=== PATIENT | female | born 1980 | race Caucasian/White ===

== ENCOUNTER 2019-02-20 14:52 | Emergency (ER) | payer MEDICAID ==
[~2019-02-20] VITALS: Ht 157.5 cm; Wt 64.4 kg
[2019-02-20 14:55] VITALS: BP 134/81; PULSE 87; RESP 18; Ht 157.5 cm; Wt 64.4 kg
[2019-02-20] MEDS ORDERED: ONDANSETRON 4 MG INJ IV STA (15:19)
[2019-02-20] MEDS ORDERED: DIPHENHYDRAMINE 50 MG INJ IV STA (15:19)
[2019-02-20] MEDS ORDERED: SOD CHLORIDE 0.9% 1,000 ML IV STA (15:19)
[2019-02-20] MEDS ORDERED: KETOROLAC 30 MG INJ IV STA (15:19)
[2019-02-20] MEDS ORDERED: ACET325T33 PO (16:19)
[2019-02-20] MEDS ORDERED: NAPR-985 PO (16:19)
--- NOTE | 2019-02-20 16:43 | ERD ---
ER Documentation Chief Complaint Chief Complaint head pain x 2 days denies dizziness, nausea or vision changes HPI 38-year-old female presenting with headache and nausea. Patient has some mild chest pain and occasional shortness of breath. She denies any abdominal pain. Feels mildly nauseous. Has taken Tylenol with no alleviation. States that her headache is located in the occipital lobe denies any visual changes. Denies medical problems. NKDA. Surgical history . Social history denies ROS All systems reviewed and are negative except as per history of present illness. Medications Home Meds Active Scripts Acetaminophen* (Tylenol*) 325 Mg Tablet, 2 TAB PO Q6 PRN for PAIN AND OR ELEVATED TEMP, #20 TAB Prov:LANI RILEY PA-C 02/20/19 Naproxen* (Naprosyn*) 500 Mg Tablet, 500 MG PO BID PRN for PAIN AND/OR INFLAMMATION, #30 TAB Prov:LANI RILEY PA-C 02/20/19 Allergies Allergies: Coded Allergies: No Known Allergy (Unverified , 02/20/19) PMhx/Soc Medical and Surgical Hx: pt denies Medical Hx History of Surgery: Yes () Hx Alcohol Use: No Hx Substance Use: No Hx Tobacco Use: No Smoking Status: Never smoker FmHx Family History: No diabetes, No coronary disease, No other Physical Exam Vitals Vital Signs Date Temp Pulse Resp B/P (MAP) Pulse Ox O2 O2 Flow FiO2 Time Delivery Rate 02/20/19 99.2 87 18 134/81 99 14:55 (98) Physical Exam GENERAL: The patient is well-appearing, well-nourished, in no acute distress HEENT: Atraumatic. Conjunctivae are pink. Pupils equal, round, and reactive to light. There is no scleral icterus. Tympanic membranes clear bilaterally. Oropharynx clear. CHEST: Clear to auscultation bilaterally. There are no rales, wheezes or rhonchi. HEART: Regular rate and rhythm. No murmurs, clicks, rubs or gallops. EXTREMITIES: Equal pulses bilaterally. There is no peripheral clubbing, cyanosis or edema. No focal swelling or erythema. Full range of motion. Grossly neurovascularly intact. NEUROLOGIC: Alert and oriented. Cranial nerves II through XII intact. Motor strength in all 4 extremities with 5 out of 5 strength. Sensation grossly intac t. Normal speech and gait. SKIN: There is no apparent rash or petechiae. The skin is warm and dry. Results 24 hrs Laboratory Tests Test 02/20/19 15:27 02/20/19 15:32 Urine Color YELLOW Urine Clarity CLEAR Urine pH 7.0 Urine Specific [place] 1.012 Urine Ketones NEGATIVE mg/dL Urine Nitrite NEGATIVE mg/dL Urine Bilirubin NEGATIVE mg/dL Urine Urobilinogen NEGATIVE mg/dL Urine Leukocyte Esterase NEGATIVE Mariah/ul Urine Microscopic RBC 6 /HPF Urine Microscopic WBC 0 /HPF Urine Hemoglobin 2+ mg/dL Urine Glucose NEGATIVE mg/dL Urine Total Protein NEGATIVE mg/dl POC Beta HCG, Qualitative NEGATIVE Current Medications Medications Dose Sig/Pramod Start Time Status Last (Trade) Ordered Route PRN Stop Time Admin Dose Reason Admin Sodium 1,000 ml @ Q1H STAT 02/20/19 DC 02/20/19 Chloride 1,000 mls/hr IV 15:19 15:57 02/20/19 16:18 Ondansetron 4 mg ONCE STAT 02/20/19 DC 02/20/19 HCl (Zofran IV 15:19 15:57 Inj) 02/20/19 15:20 Ketorolac 30 mg ONCE STAT 02/20/19 DC 02/20/19 Tromethamine IV 15:19 15:57 (Toradol) 02/20/19 15:20 25 mg ONCE STAT 02/20/19 DC 02/20/19 Diphenhydrami IV 15:19 15:56 ne HCl 02/20/19 15:20 (Benadryl) Procedures/MDM DIAGNOSTIC IMAGING REPORT Patient: ALEXEY GASTON : 1980 Age: 38 Sex: F [id number] DOS: 02/20/19 1519 Ordering MD: KATELYN RILEY PA-C Location: [facility] Room/Bed: PROCEDURE: CT BRAIN WITHOUT CONTRAST. CLINICAL INDICATION: Headache TECHNIQUE: A CT of the brain was performed on a multidetector high-resolution CT scanner utilizing axial imaging from the skull base through the vertex without IV contrast. Multiplanar reformatted images were made. Images were reviewed on a PACS workstation. The CTDIvol is 39.6 mGy and the DLP is 534.2 mGycm. One or more of the following dose reduction techniques were used: - Automated exposure control. - Adjustment of the mA and/or kV according to patient size. - Use of iterative reconstruction technique. DICOM images are available. COMPARISON: None FINDINGS: The posterior fossa structures are unremarkable. The sharad, midbrain, and medulla appear to be with normal limits. There is no evidence of acute intracranial hemorrhage, infarct, or extra-axial fluid collection. No gross mass effect or midline shift. Cerebral sulci, cisternal spaces, and ventricles are within normal limits. The visualized paranasal sinuses are clear. The mastoid air cells are well- aerated. The calvarium is unremarkable. IMPRESSION: 1. No evidence of acute intracranial hemorrhage, infarct, or extra-axial fluid collection. 2. Unremarkable CT brain. Lateral symptoms persist, consider follow-up MRI of the brain. ER course: 1 L normal saline given ED. Toradol and Benadryl with Zofran given ED. Upon reevaluation patient stated her symptoms had improved. MDM: 38-year-old female presenting with headache. I have low suspicion for intracranial hemorrhage or neuro deficit. I have low suspicion for cardiac or pulmonary emergency. Vitals are stable and was non-concerning. Patient is discharged with supportive medications and told to follow-up with primary care within 1-2 days for close evaluation. Patient is told if symptoms change or worsen to return immediately to the ER. All questions answered at discharge Departure Diagnosis: Primary Impression: Headache Condition: Stable Patient Instructions: Self-Care for Headaches Referrals: [facility] YOU HAVE RECEIVED A MEDICAL SCREENING EXAM AND THE RESULTS INDICATE THAT YOU DO NOT HAVE A CONDITION THAT REQUIRES URGENT TREATMENT IN THE EMERGENCY DEPARTMENT. FURTHER EVALUATION AND TREATMENT OF YOUR CONDITION CAN WAIT UNTIL YOU ARE SEEN IN YOUR DOCTORS OFFICE WITHIN THE NEXT 1-2 DAYS. IT IS YOUR RESPONSIBILITY TO MAKE AN APPOINTMENT FOR FOLOW-UP CARE. IF YOU HAVE A PRIMARY DOCTOR --you should call your primary doctor and schedule an appointment IF YOU DO NOT HAVE A PRIMARY DOCTOR YOU CAN CALL OUR PHYSICIAN REFERRAL HOTLINE AT IF YOU CAN NOT AFFORD TO SEE A PHYSICIAN YOU CAN CHOSE FROM THE FOLLOWING [facility] [address] [facility] [address] [facility] [facility] [address] [facility] [facility] [address] [facility] [address]. [facility] [address] Additional Instructions: FOLLOW UP WITH YOUR PRIMARY CARE PHYSICIAN TOMORROW.Return to this facility if you are not improving as expected. LANI RILEY PA-C Feb 20, 2019 16:43
== END 2019-02-20 17:13 | disposition home or self-care (01) ==
LOC: FTE 14:52
DX: R51 Headache (principal); R11.0 Nausea
CPT/HCPCS: 70450; 81001; 81025; 96374; 96375; J1200; J1885; J2405; J7030; Z7502